=== PATIENT | male | born 1980 | race African-American/Black ===

== ENCOUNTER 2019-03-18 12:54 | Emergency (ER) | payer SELFPAY ==
[~2019-03-18 12:54] MED LIST: ALP5 PO; ATE50 PO; HCTZ25 PO; IBU800 PO; LOR75 PO; PEN250L PO; VERA120T71 PO
--- NOTE | 2019-03-18 12:55 | ER Report ---
History and Physical Time Seen By MD: 12:55 HPI/ROS CHIEF COMPLAINT: Bloody stools HISTORY OF PRESENT ILLNESS: Patient is a 38-year-old male who states that for the past few years he's had episodes where he has a bowel movement and then we'll drip of bright red blood into the toilet after the bowel movement. He states that this typically occurs with a straining episode or with hard stool and does not usually occur when his stools are on the softer side. He denies any rectal pain or pressure. He denies any abdominal pain or bloating. He is somewhat concerned because he has a history of alcohol abuse which he has now been in recovery for the last 3 years and he is getting his life back into her. He is concerned about the possibility of cancer. Patient denies any other symptoms at this time. REVIEW OF SYSTEMS: Respiratory: No cough, no dyspnea. Cardiovascular: No chest pain, no palpitations. Gastrointestinal: No vomiting, no abdominal pain. Rectal bleeding Musculoskeletal: No back pain. Allergies: Coded Allergies: No Known Allergies (Verified Allergy, Mild, 03/18/19) Home Meds Discontinued Reported Medications Verapamil Hcl (Verapamil Er) 120 Mg Tablet.er, 120 MG PO BID, #60 0 Refills 12/18/11 [None] No Conflict Check, 0 Refills 12/18/11 Past Medical/Surgical History Hypertension, prior history of alcohol abuse. Hx Smoking: No Hx Substance Use Disorder: No Hx Alcohol Use: Yes (ON WEEKENDS) Constitutional Vital Sign - Last 24 Hours 03/18/19 03/18/19 03/18/19 12:59 13:00 13:30 Temp 98.3 Pulse 91 101 77 Resp 18 B/P (MAP) 152/95 121/74 (90) Pulse Ox 91 93 91 O2 Delivery Room Air Physical Exam General Appearance: The patient is alert, has no immediate need for airway protection and no current signs of toxicity. Eyes: Pupils equal and round no injection. Respiratory: Chest is non tender, lungs are clear to auscultation. Cardiac: regular rate and rhythm Gastrointestinal: Abdomen is soft and non tender, no masses, bowel sounds normal. Musculoskeletal: Neck: Neck is supple and non tender. Extremities have full range of motion and are non tender. Skin: No rashes or lesions. Medical Decision Making Data Points Result Diagram: 03/18/19 1312 03/18/19 1312 Laboratory Hematology Test 03/18/19 13:12 Red Blood Count 5.73 M/uL (4.00-5.60) Mean Corpuscular Volume 81.7 fL (80.0-96.0) Mean Corpuscular Hemoglobin 26.1 pg (26.0-33.0) Mean Corpuscular Hemoglobin Concent 32.0 g/dL (32.0-36.0) Red Cell Distribution Width 14.6 % (11.5-14.5) Mean Platelet Volume 8.1 fL (7.2-11.1) Neutrophils (%) (Auto) 83.7 % (39.4-72.5) Lymphocytes (%) (Auto) 8.8 % (17.6-49.6) Monocytes (%) (Auto) 5.9 % (4.1-12.4) Eosinophils (%) (Auto) 1.0 % (0.4-6.7) Basophils (%) (Auto) 0.6 % (0.3-1.4) Nucleated RBC Relative Count (auto) 0.0 /100WBC Neutrophils # (Auto) 10.1 K/uL (2.0-7.4) Lymphocytes # (Auto) 1.1 K/uL (1.3-3.6) Monocytes # (Auto) 0.7 K/uL (0.3-1.0) Eosinophils # (Auto) 0.1 K/uL (0.0-0.5) Basophils # (Auto) 0.1 K/uL (0.0-0.1) Nucleated RBC Absolute Count (auto) 0.00 K/uL Peripheral Blood Smear No Y/N Sodium Level 140 mmol/L (137-145) Potassium Level 4.0 mmol/L (3.5-5.0) Chloride Level 108 mmol/L (98-107) Carbon Dioxide Level 24 mmol/L (22-30) Blood Urea Nitrogen 18 mg/dl (9-21) Creatinine 1.10 mg/dl (0.66-1.25) Glomerular Filtration Rate Calc > 60.0 Random Glucose 119 mg/dl (75-110) Calcium Level 8.8 mg/dl (8.4-10.2) Total Bilirubin 0.3 mg/dl (0.2-1.3) Aspartate Amino Transf (AST/SGOT) 20 U/L (0-35) Alanine Aminotransferase (ALT/SGPT) 28 U/L (0-56) Alkaline Phosphatase 60 U/L (0-126) Total Protein 7.6 g/dl (6.3-8.2) Albumin 4.5 g/dl (3.5-5.0) Lipase 30 U/L (23-300) Helicobacter pylori IgG Antibody Negative (NEGATIVE) Chemistry Test 03/18/19 13:12 White Blood Count 12.0 k/uL (4.5-11.0) Red Blood Count 5.73 M/uL (4.00-5.60) Hemoglobin 15.0 g/dL (14.0-18.0) Hematocrit 46.8 % (42.0-52.0) Mean Corpuscular Volume 81.7 fL (80.0-96.0) Mean Corpuscular Hemoglobin 26.1 pg (26.0-33.0) Mean Corpuscular Hemoglobin Concent 32.0 g/dL (32.0-36.0) Red Cell Distribution Width 14.6 % (11.5-14.5) Platelet Count 262 K/uL (150-450) Mean Platelet Volume 8.1 fL (7.2-11.1) Neutrophils (%) (Auto) 83.7 % (39.4-72.5) Lymphocytes (%) (Auto) 8.8 % (17.6-49.6) Monocytes (%) (Auto) 5.9 % (4.1-12.4) Eosinophils (%) (Auto) 1.0 % (0.4-6.7) Basophils (%) (Auto) 0.6 % (0.3-1.4) Nucleated RBC Relative Count (auto) 0.0 /100WBC Neutrophils # (Auto) 10.1 K/uL (2.0-7.4) Lymphocytes # (Auto) 1.1 K/uL (1.3-3.6) Monocytes # (Auto) 0.7 K/uL (0.3-1.0) Eosinophils # (Auto) 0.1 K/uL (0.0-0.5) Basophils # (Auto) 0.1 K/uL (0.0-0.1) Nucleated RBC Absolute Count (auto) 0.00 K/uL Peripheral Blood Smear No Y/N Glomerular Filtration Rate Calc > 60.0 Calcium Level 8.8 mg/dl (8.4-10.2) Total Bilirubin 0.3 mg/dl (0.2-1.3) Aspartate Amino Transf (AST/SGOT) 20 U/L (0-35) Alanine Aminotransferase (ALT/SGPT) 28 U/L (0-56) Alkaline Phosphatase 60 U/L (0-126) Total Protein 7.6 g/dl (6.3-8.2) Albumin 4.5 g/dl (3.5-5.0) Lipase 30 U/L (23-300) Helicobacter pylori IgG Antibody Negative (NEGATIVE) ED Course/Re-evaluation ED Course At this time will to be check CBC LFTs H pylori screen. Based on history likely etiology for patient's symptoms is internal hemorrhoid. Plan will be workup here in a referral for colonoscopy. Decision to Disposition Date: Mar 18, 2019 Decision to Disposition Time: 14:37 Depart Departure Latest Vital Signs Vital Signs Date Time Temp Pulse Resp B/P (MAP) Pulse Ox O2 Delivery O2 Flow Rate FiO2 03/18/19 13:30 77 121/74 (90) 91 03/18/19 12:59 98.3 18 Room Air Impression: Primary Impression: Rectal bleeding Condition: Improved Disposition: HOME OR SELF-CARE Referrals: MARGARITO CHILDRESS (PCP) MELIZA ZURITA MD call to schedule appointment for a colonoscopy Patient Instructions: Rectal Bleeding (DC) TERENCE EDWARDS MD Mar 18, 2019 12:55
[2019-03-18 13:25] LABS: PLATELET COUNT, AUTOMATED 262 K/uL (150-450)
[2019-03-18 13:30] VITALS: BP 121/74
== END 2019-03-18 13:51 | disposition home or self-care (01) ==
LOC: ER 12:56
DX: K92.1 Melena (principal)
CPT/HCPCS: 36415; 82040; 82247; 82310; 82374; 82435; 82565; 82947; 83690; 84075; 84132; 84155; 84295; 84450; 84460; 84520; 85025; 86677; 99282